=== PATIENT | male | born 1990 | race African-American/Black ===

== ENCOUNTER 2020-10-28 20:15 | Emergency (ER) | payer MEDICAID ==
[~2020-10-28] VITALS: Ht 182.9 cm; Wt 125.2 kg
[2020-10-28 20:35] VITALS: Ht 182.9 cm; Wt 125.2 kg
[2020-10-28 22:43] VITALS: BP 160/99
== END 2020-10-28 22:43 | disposition home or self-care (01) ==
LOC: ED 20:15
DX: L02.31 Cutaneous abscess of buttock (principal)
CPT/HCPCS: J2001

== ENCOUNTER 2020-10-31 13:48 | Emergency (ER) | payer MEDICAID ==
[~2020-10-31] VITALS: Ht 182.9 cm; Wt 125.2 kg
[2020-10-31 13:55] VITALS: BP 133/81; Ht 182.9 cm; Wt 125.2 kg
== END 2020-10-31 14:40 | disposition home or self-care (01) ==
LOC: ED 13:48
DX: L02.31 Cutaneous abscess of buttock (principal)